=== PATIENT | female | born 1945 | race African-American/Black ===

== ENCOUNTER 2019-01-03 09:59 | Emergency (ER) | payer MEDICARE, MEDICAID ==
[~2019-01-03] VITALS: Ht 165.1 cm; Wt 84.0 kg
[~2019-01-03 09:59] MED LIST: AMIT150T; ASPI-518; CELE200C; DIPH25CA83; HYDR200T35; METO-385; OXYCODONE; PREG150C; SIMV40TA5; VALS1TAB34
[2019-01-03] MEDS ORDERED: HYDROCODONE/ACETAMINOPHEN 5/325MG TABLET PO ONE (10:30)
[2019-01-03 10:43] LABS: BASOPHILS % 0.4 % (0.0-2.0); EOSINOPHILS % 1.9 % (0.0-5.0); HEMATOCRIT. 43.2 % (36.0-48.0); HEMOGLOBIN. 14.5 g/dL (12.0-16.0); LYMPHOCYTES % 29.4 % (20.0-50.0); MEAN CORPUSCULAR HEMOGLOBIN 29.3 pg (28.0-32.0); MEAN CORPUSCULAR VOLUME 87.7 fL (81.0-99.0); MEAN PLATELET VOLUME 7.9 fl (7.4-10.4); MONOCYTES % 5.5 % (2.0-8.0); NEUTROPHILS % 62.8 % (40.0-76.0); PLATELET 241 x1000/uL (130-400); RED BLOOD CELL COUNT 4.93 mill/uL (4.2-5.4); RED CELL DISTRIBUTION WIDTH 16.5 % (11.6-14.6)
[2019-01-03 10:44] LABS: CHLORIDE 104 mEq/L (98-107)
[2019-01-03 10:47] LABS: INR 0.9; PROTHROMBIN TIME 9.7 sec (9.6-11.0)
[2019-01-03] MEDS ORDERED: POTASSIUM CHLORIDE 20MEQ TABLET SR PO ONE (11:30)
[2019-01-03 18:50] VITALS: BP 140/87
== END 2019-01-03 18:53 | disposition home or self-care (01) ==
LOC: ER 09:59
DX: M54.5 Low back pain (principal); R51 Headache; M25.552 Pain in left hip; M25.551 Pain in right hip; E87.6 Hypokalemia; I10 Essential (primary) hypertension; V43.52XA Car driver injured in collision with other type car in traffic accident, initial encounter; V47.5XXA Car driver injured in collision with fixed or stationary object in traffic accident, initial encounter; Y93.89 Activity, other specified; Y92.410 Unspecified street and highway as the place of occurrence of the external cause; M32.9 Systemic lupus erythematosus, unspecified
CPT/HCPCS: 36415; 71046; 72100; 72170; 99284